=== PATIENT | female | born 1935 | race Hispanic/Latino ===

== ENCOUNTER 2022-07-25 19:38 | Inpatient (IN) | payer MEDICARE ==
[~2022-07-25] VITALS: Ht 162.6 cm; Wt 66.2 kg
[2022-07-25 20:48] LABS: BASOPHILS % (AUTO) 0.3 % (0.0-5.0); EOSINOPHILS % (AUTO) 0.1 % (0.0-8.0); HEMATOCRIT 23.9 % (36-48); LYMPHOCYTES % (AUTO) 1.9 % (21.0-51.0); MEAN CORPUSCULAR HEMOGLOBIN 30.3 pg (27.0-33.0); MEAN CORPUSCULAR HGB CONC 30.1 g/dL (32.0-36.0); MEAN CORPUSCULAR VOLUME 100.4 fL (79-99); MONOCYTES % (AUTO) 5.8 % (3.0-13.0); NEUTROPHILS % (AUTO) 90.5 % (40.0-77.0); PLATELET COUNT (AUTO) 114 K/uL (130-400); RED BLOOD CELL COUNT(AUTO) 2.38 MIL/uL (4.00-5.50); RED CELL DISTRIBUTION WIDTH 17.4 % (11.0-15.5); WHITE BLOOD COUNT (AUTO) 16.9 K/uL (4.8-10.8)
[2022-07-25 21:04] LABS: ALBUMIN 3.3 g/dL (3.5-5.0); CREATININE 2.1 mg/dL (0.5-1.5); POTASSIUM 4.9 mmol/L (3.5-5.1)
[2022-07-25 21:14] LABS: B-TYPE NATRIURETIC PEPTIDE 788 pg/mL (0-100)
[2022-07-25] MEDS ORDERED: INSULIN HUMULIN R 100 UNIT/ML 3ML IV ONE (22:00)
[2022-07-25 23:33] LABS: APPEARANCE,URINE CLOUDY (CLEAR); BILIRUBIN,URINE NEGATIVE (NEGATIVE); COLOR,URINE LIGHT-YELLOW (YELLOW); GLUCOSE, URINE (UA) 300 mg/dL (NEGATIVE); KETONES,URINE NEGATIVE (NEGATIVE); LEUKOCYTE ESTERASE ,URINE NEGATIVE Leu/uL (NEGATIVE); NITRATE,URINE NEGATIVE (NEGATIVE); PROTEIN,URINE 20 mg/dL (NEGATIVE); UROBILINOGEN,URINE 0.2 mg/dL (0.2-1.0)
[2022-07-25 23:39] LABS: MUCUS,URINE RARE LPF (None Seen); OTHER CASTS, URINE 4 /LPF (None Seen); RBC,URINE 0-1 /HPF (0-1); SQUAMOUS EPITHELIAL CELL,UR FEW /HPF (0-2)
[2022-07-26] MEDS: IPRATROPIUM/ALBUTEROL SULFATE 3 ML SOLUTION IH SCH ×5 (01:00→23:31)
[2022-07-26] MEDS ORDERED: ONDANSETRON 4MG INJ IVP PRN (01:00)
[2022-07-26] MEDS ORDERED: DEXTROSE 50%-WATER 50 ML DISP.SYRIN IV PRN (01:00)
[2022-07-26] MEDS ORDERED: CLONIDINE HCL 0.1 MG TABLET PO PRN (01:00)
[2022-07-26] MEDS ORDERED: GLUCAGON 1MG KIT 1 MG ML IM PRN (01:00)
[2022-07-26] MEDS ORDERED: HYDRALAZINE 20MG/ML VIAL IV PRN (01:00)
[2022-07-26] MEDS ORDERED: BENZONATATE 100 MG CAPSULE PO PRN (01:00)
[2022-07-26] MEDS ORDERED: GUAIFENESIN-DM 200/20 MG 10 ML PO PRN (01:00)
[2022-07-26] MEDS ORDERED: ACETAMINOPHEN 325 MG TAB PO PRN (01:00)
[2022-07-26] MEDS ORDERED: LACTULOSE 20 GM/30 ML UDCUP PO PRN (01:00)
[2022-07-26 01:13] LABS: ABG HCO3 22.1 mmol/L (21.0-28.0); ABG OXYGEN SATURATION 95.3 % (95.0-99.0); ABG PCO2 36 mmHg (32-45)
[2022-07-26] MEDS ORDERED: SODIUM CHLORIDE 3% FOR INHALATION 4 ML/AMP VIAL.NEB IH ONE ×2 (01:21→06:36)
[2022-07-26] MEDS: ALBUTEROL 0.083% 2.5 MG/3 ML INH IH PRN (01:23)
[2022-07-26] MEDS ORDERED: ZOSYN 3.375GM +NS 50ML IV SCH (02:30)
[2022-07-26] MEDS ORDERED: RENAL DOSE IV ONE (02:30)
[2022-07-26] MEDS ORDERED: AZITHROMYCIN 250 MG TABLET PO SCH (02:30)
[2022-07-26] MEDS ORDERED: FUROSEMIDE 20MG VIAL IV ONE (02:30)
[2022-07-26] MEDS ORDERED: AZITHROMYCIN 250 MG TABLET PO ONE (02:30)
[2022-07-26 03:09] VITALS: BP 121/45
[2022-07-26] MEDS ORDERED: BIMA12.5OS OD (04:08)
[2022-07-26] MEDS ORDERED: MIRT45TA83 PO (04:08)
[2022-07-26] MEDS ORDERED: GABA-529 PO (04:08)
[2022-07-26] MEDS ORDERED: MECO10005 PO (04:08)
[2022-07-26] MEDS ORDERED: POLY15DR38 OP (04:08)
[2022-07-26] MEDS ORDERED: ROSU5TAB PO (04:08)
[2022-07-26] MEDS ORDERED: TORS20TA4 PO (04:08)
[2022-07-26] MEDS ORDERED: [UNRECOGNIZED DRUG - CODE] PO (04:08)
[2022-07-26] MEDS ORDERED: FOLI0.4T6 PO (04:08)
[2022-07-26] MEDS ORDERED: TRAZ-185 PO (04:08)
[2022-07-26] MEDS ORDERED: FERR236T3 PO (04:08)
[2022-07-26] MEDS ORDERED: FOLI0.8T22 PO (04:08)
[2022-07-26] MEDS ORDERED: POTA10CA45 PO (04:08)
[2022-07-26] MEDS ORDERED: CHOL50002 PO (04:08)
[2022-07-26] MEDS ORDERED: ROSU5TAB12 PO (04:08)
[2022-07-26] MEDS ORDERED: NILO150C PO (04:08)
[2022-07-26] MEDS ORDERED: AMLO-258 PO (04:08)
[2022-07-26] MEDS ORDERED: METO25TA6 PO (04:08)
[2022-07-26] MEDS ORDERED: SITA25TA5 PO (04:08)
[2022-07-26 04:13] LABS: CREATININE 2.1 mg/dL (0.5-1.5); MAGNESIUM 2.3 mg/dL (1.80-2.40); PHOSPHORUS 3.3 mg/dL (2.5-4.9); POTASSIUM 4.3 mmol/L (3.5-5.1)
[2022-07-26 04:16] LABS: % IRON SATURATION 14.3 % (22-44)
[2022-07-26 06:14] LABS: BASOPHILS % (AUTO) 0.2 % (0.0-5.0); EOSINOPHILS % (AUTO) 0.2 % (0.0-8.0); LYMPHOCYTES % (AUTO) 4.6 % (21.0-51.0); MEAN CORPUSCULAR HEMOGLOBIN 29.4 pg (27.0-33.0); MEAN CORPUSCULAR VOLUME 98.1 fL (79-99); MONOCYTES % (AUTO) 7.1 % (3.0-13.0); NEUTROPHILS % (AUTO) 86.4 % (40.0-77.0); PLATELET COUNT (AUTO) 86 K/uL (130-400); RED BLOOD CELL COUNT(AUTO) 2.11 MIL/uL (4.00-5.50); RED CELL DISTRIBUTION WIDTH 17.5 % (11.0-15.5); WHITE BLOOD COUNT (AUTO) 8.8 K/uL (4.8-10.8)
[2022-07-26] MEDS: INSULIN HUMULIN R 100 UNIT/ML 3ML SQ SCH ×4 (06:23→21:31)
[2022-07-26 07:12] LABS: HEMATOCRIT 20.7 % (36-48)
[2022-07-26 08:00] VITALS: BP 123/37
[2022-07-26] MEDS ORDERED: PANTOPRAZOLE 40 MG TAB DR PO SCH (09:00)
[2022-07-26] MEDS: DOCUSATE SODIUM 100 MG CAP PO SCH ×2 (10:22→21:19)
[2022-07-26] MEDS ORDERED: BIMATOPROST OD SCH (11:30)
[2022-07-26] MEDS ORDERED: TRAZODONE HCL 50 MG TAB PO PRN (11:30)
[2022-07-26 11:42] VITALS: BP 122/42
[2022-07-26] MEDS ORDERED: FUROSEMIDE 40MG VIAL IV SCH (12:00)
[2022-07-26 12:16] LABS: RETICULOCYTE % (AUTO) 4.49 % (0.42-2.23)
[2022-07-26 12:50] LABS: THYROID STIMULATING HORMONE 0.79 uIU/mL (0.36-3.74)
[2022-07-26] MEDS: SUCRALFATE 1 GM TABLET PO SCH ×3 (12:56→21:21)
[2022-07-26] MEDS: TORSEMIDE 20 MG TAB PO SCH ×2 (12:56→21:28)
[2022-07-26] MEDS: AMINOCAPROIC ACID 500MG TAB PO SCH ×2 (13:06→21:21)
[2022-07-26 15:07] LABS: HEMATOCRIT 27.9 % (36-48)
[2022-07-26 16:00] VITALS: BP 127/58
[2022-07-26 20:23] VITALS: BP 133/82
[2022-07-26] MEDS: ZOSYN 3.375GM +NS 50ML IV SCH (21:19)
[2022-07-26] MEDS: METOPROLOL TARTRATE 25 MG TAB PO SCH (21:19)
[2022-07-26] MEDS: ATORVASTATIN 10 MG TABLET PO SCH (21:20)
[2022-07-26] MEDS: POTASSIUM CHLORIDE 10MEQ SR TAB PO SCH (21:29)
[2022-07-26] MEDS: MIRTAZAPINE 15 MG TABLET PO SCH (21:37)
[2022-07-26] MEDS: FUROSEMIDE 20MG VIAL IV SCH (23:53)
[2022-07-27 00:05] VITALS: BP 134/61
[2022-07-27 04:09] VITALS: BP 130/59
[2022-07-27 04:13] LABS: HEMATOCRIT 27.8 % (36-48); MEAN CORPUSCULAR HEMOGLOBIN 29.7 pg (27.0-33.0); MEAN CORPUSCULAR HGB CONC 31.3 g/dL (32.0-36.0); MEAN CORPUSCULAR VOLUME 94.9 fL (79-99); PLATELET COUNT (AUTO) 79 K/uL (130-400); RED BLOOD CELL COUNT(AUTO) 2.93 MIL/uL (4.00-5.50); RED CELL DISTRIBUTION WIDTH 17.3 % (11.0-15.5); WHITE BLOOD COUNT (AUTO) 10.2 K/uL (4.8-10.8)
[2022-07-27 04:28] LABS: CREATININE 2.2 mg/dL (0.5-1.5); MAGNESIUM 2.2 mg/dL (1.80-2.40); PHOSPHORUS 3.5 mg/dL (2.5-4.9); POTASSIUM 3.8 mmol/L (3.5-5.1); TOTAL PROTEIN, SERUM 5.7 g/dL (6.0-8.3); URIC ACID 7.7 mg/dL (2.6-7.2)
[2022-07-27 05:01] LABS: BAND NEUTROPHILS % (MANUAL) 5 % (0-2); LYMPHOCYTES % (MANUAL) 9 % (22-44); MAN.DIFF COMMENT-IMPRESSION MANUAL DIFFERENTIAL; MONOCYTES % (MANUAL) 2 % (2-9); PLATELET MORPHOLOGY COMMENT DECREASED; SEGMENTED NEUTROPHILS % 84 % (40-70)
[2022-07-27] MEDS: AZITHROMYCIN 250 MG TABLET PO SCH (05:04)
[2022-07-27] MEDS: IPRATROPIUM/ALBUTEROL SULFATE 3 ML SOLUTION IH SCH ×4 (06:32→23:49)
[2022-07-27] MEDS: INSULIN HUMULIN R 100 UNIT/ML 3ML SQ SCH ×4 (07:07→20:52)
[2022-07-27 07:44] VITALS: BP 128/57
[2022-07-27] MEDS: ZOSYN 3.375GM +NS 50ML IV SCH ×2 (08:52→21:15)
[2022-07-27] MEDS: Vitamin B Complex/Vit C/Folic Acid PO SCH (08:57)
[2022-07-27] MEDS: DOCUSATE SODIUM 100 MG CAP PO SCH ×2 (08:57→21:10)
[2022-07-27] MEDS: FOLIC ACID 1 MG TABLET PO SCH (08:57)
[2022-07-27] MEDS: POLYETHYLENE GLYCOL 3350 17 GM POWD.PACK PO SCH (08:57)
[2022-07-27] MEDS: POTASSIUM CHLORIDE 10MEQ SR TAB PO SCH ×2 (08:57→21:11)
[2022-07-27] MEDS: AMINOCAPROIC ACID 500MG TAB PO SCH ×3 (08:57→21:09)
[2022-07-27] MEDS: FERROUS GLUCONATE 324 TABLET PO SCH (08:57)
[2022-07-27] MEDS: SUCRALFATE 1 GM TABLET PO SCH ×4 (08:57→21:09)
[2022-07-27] MEDS: AMLODIPINE 5 MG TAB PO SCH (08:58)
[2022-07-27] MEDS: CYANOCOBALAMIN (VITAMIN B-12) 1,000 MCG TABLET PO SCH (08:58)
[2022-07-27] MEDS: METOPROLOL TARTRATE 25 MG TAB PO SCH ×2 (08:58→21:11)
[2022-07-27] MEDS ORDERED: ERGOCALCIFEROL (VITAMIN D2) 50,000 UNIT CAPSULE PO SCH (09:00)
[2022-07-27 12:00] VITALS: BP 122/62
[2022-07-27] MEDS: FUROSEMIDE 20MG VIAL IV SCH (12:05)
[2022-07-27 16:00] VITALS: BP 120/47
[2022-07-27 20:48] VITALS: BP 113/53
[2022-07-27] MEDS: MIRTAZAPINE 15 MG TABLET PO SCH (21:10)
[2022-07-27] MEDS: ATORVASTATIN 10 MG TABLET PO SCH (21:11)
[2022-07-27] MEDS: ALBUTEROL 0.083% 2.5 MG/3 ML INH IH PRN (23:48)
[2022-07-28] VITALS (7 sets, daily range): BP systolic 114–150; BP diastolic 47–60
[2022-07-28] MEDS: FUROSEMIDE 20MG VIAL IV SCH ×2 (01:05→11:43)
[2022-07-28 03:35] LABS: MEAN CORPUSCULAR HEMOGLOBIN 29.8 pg (27.0-33.0); MEAN CORPUSCULAR HGB CONC 31.9 g/dL (32.0-36.0); MEAN CORPUSCULAR VOLUME 93.4 fL (79-99); RED BLOOD CELL COUNT(AUTO) 2.89 MIL/uL (4.00-5.50); RED CELL DISTRIBUTION WIDTH 16.9 % (11.0-15.5); WHITE BLOOD COUNT (AUTO) 10.3 K/uL (4.8-10.8)
[2022-07-28 03:46] LABS: CREATININE 2.4 mg/dL (0.5-1.5); POTASSIUM 3.2 mmol/L (3.5-5.1)
[2022-07-28] MEDS: INSULIN HUMULIN R 100 UNIT/ML 3ML SQ SCH ×4 (06:02→20:13)
[2022-07-28] MEDS: SUCRALFATE 1 GM TABLET PO SCH ×4 (06:18→22:04)
[2022-07-28] MEDS: AZITHROMYCIN 250 MG TABLET PO SCH (06:18)
[2022-07-28] MEDS: ALBUTEROL 0.083% 2.5 MG/3 ML INH IH PRN (07:07)
[2022-07-28] MEDS: POTASSIUM CHLORIDE 10MEQ SR TAB PO SCH ×2 (07:32→22:05)
[2022-07-28] MEDS: ZOSYN 3.375GM +NS 50ML IV SCH ×2 (07:32→22:06)
[2022-07-28] MEDS: METOPROLOL TARTRATE 25 MG TAB PO SCH ×2 (07:33→22:05)
[2022-07-28] MEDS: AMLODIPINE 5 MG TAB PO SCH (07:33)
[2022-07-28] MEDS: FERROUS GLUCONATE 324 TABLET PO SCH (07:33)
[2022-07-28] MEDS: CYANOCOBALAMIN (VITAMIN B-12) 1,000 MCG TABLET PO SCH (07:34)
[2022-07-28] MEDS: FOLIC ACID 1 MG TABLET PO SCH (07:34)
[2022-07-28] MEDS: Vitamin B Complex/Vit C/Folic Acid PO SCH (07:34)
[2022-07-28] MEDS: DOCUSATE SODIUM 100 MG CAP PO SCH ×2 (07:34→22:05)
[2022-07-28] MEDS: POLYETHYLENE GLYCOL 3350 17 GM POWD.PACK PO SCH (07:34)
[2022-07-28] MEDS: AMINOCAPROIC ACID 500MG TAB PO SCH ×3 (09:12→22:05)
[2022-07-28] MEDS: ALBUTEROL 0.083% 2.5 MG/3 ML INH IH SCH ×3 (11:24→23:11)
[2022-07-28] MEDS: IPRATROPIUM 0.5 MG/2.5 ML INH IH SCH ×3 (11:24→23:11)
[2022-07-28] MEDS ORDERED: FUROSEMIDE 40MG VIAL IV ONE (20:30)
[2022-07-28] MEDS ORDERED: 0.9%NACL 50ML 50 ML IV ONE (21:35)
[2022-07-28] MEDS: ATORVASTATIN 10 MG TABLET PO SCH (22:05)
[2022-07-28] MEDS: MIRTAZAPINE 15 MG TABLET PO SCH (22:06)
[2022-07-29 03:25] LABS: HEMATOCRIT 25.3 % (36-48); MEAN CORPUSCULAR HGB CONC 31.6 g/dL (32.0-36.0); MEAN CORPUSCULAR VOLUME 94.8 fL (79-99); RED BLOOD CELL COUNT(AUTO) 2.67 MIL/uL (4.00-5.50); RED CELL DISTRIBUTION WIDTH 16.7 % (11.0-15.5); WHITE BLOOD COUNT (AUTO) 9.6 K/uL (4.8-10.8)
[2022-07-29 03:36] LABS: CREATININE 2.3 mg/dL (0.5-1.5); POTASSIUM 3.2 mmol/L (3.5-5.1)
[2022-07-29 04:25] VITALS: BP 131/62
[2022-07-29] MEDS: IPRATROPIUM 0.5 MG/2.5 ML INH IH SCH ×2 (06:21→11:13)
[2022-07-29] MEDS: ALBUTEROL 0.083% 2.5 MG/3 ML INH IH SCH ×2 (06:22→11:13)
[2022-07-29] MEDS: INSULIN HUMULIN R 100 UNIT/ML 3ML SQ SCH ×2 (06:36→11:55)
[2022-07-29] MEDS: AZITHROMYCIN 250 MG TABLET PO SCH (06:46)
[2022-07-29] MEDS: SUCRALFATE 1 GM TABLET PO SCH ×2 (06:46→11:50)
[2022-07-29 07:02] VITALS: BP 129/60
[2022-07-29] MEDS ORDERED: 0.9%NACL 50ML 50 ML IV ONE (08:35)
[2022-07-29] MEDS: POLYETHYLENE GLYCOL 3350 17 GM POWD.PACK PO SCH ×2 (09:00→09:22)
[2022-07-29] MEDS ORDERED: FUROSEMIDE 40 MG TABLET PO SCH (09:00)
[2022-07-29] MEDS: ZOSYN 3.375GM +NS 50ML IV SCH (09:20)
[2022-07-29] MEDS: FERROUS GLUCONATE 324 TABLET PO SCH (09:21)
[2022-07-29] MEDS: POTASSIUM CHLORIDE 10MEQ SR TAB PO SCH (09:21)
[2022-07-29] MEDS: CYANOCOBALAMIN (VITAMIN B-12) 1,000 MCG TABLET PO SCH (09:21)
[2022-07-29] MEDS: AMLODIPINE 5 MG TAB PO SCH (09:22)
[2022-07-29] MEDS: FOLIC ACID 1 MG TABLET PO SCH (09:22)
[2022-07-29] MEDS: Vitamin B Complex/Vit C/Folic Acid PO SCH (09:22)
[2022-07-29] MEDS: DOCUSATE SODIUM 100 MG CAP PO SCH (09:22)
[2022-07-29] MEDS: METOPROLOL TARTRATE 25 MG TAB PO SCH (09:22)
[2022-07-29] MEDS: AMINOCAPROIC ACID 500MG TAB PO SCH ×2 (09:31→13:39)
[2022-07-29 12:12] VITALS: BP 123/54
== END 2022-07-29 15:43 | DRG 871 ==
LOC: EDH 19:38 → OBSVTOIN 07-26 00:34 → EDHIP 07-26 00:34 → 2DH 07-26 02:45
PROVIDERS: ADMIT Internal Medicine Critical Care Medicine; ATTEND Internal Medicine Critical Care Medicine
PROC: 30233N1 Transfusion of Nonautologous Red Blood Cells into Peripheral Vein, Percutaneous Approach (ICD-10-PCS; principal; 2022-07-26)
DX: A41.9 Sepsis, unspecified organism (principal); J18.9 Pneumonia, unspecified organism; J96.01 Acute respiratory failure with hypoxia; J44.0 Chronic obstructive pulmonary disease with (acute) lower respiratory infection; I13.0 Hypertensive heart and chronic kidney disease with heart failure and stage 1 through stage 4 chronic kidney disease, or unspecified chronic kidney disease; N17.9 Acute kidney failure, unspecified; N18.4 Chronic kidney disease, stage 4 (severe); E87.1 Hypo-osmolality and hyponatremia; C92.10 Chronic myeloid leukemia, BCR/ABL-positive, not having achieved remission; Z20.822 Contact with and (suspected) exposure to COVID-19; I50.9 Heart failure, unspecified; D53.9 Nutritional anemia, unspecified; D69.6 Thrombocytopenia, unspecified; E11.22 Type 2 diabetes mellitus with diabetic chronic kidney disease; E11.65 Type 2 diabetes mellitus with hyperglycemia; Z79.4 Long term (current) use of insulin; Z87.440 Personal history of urinary (tract) infections; Z90.49 Acquired absence of other specified parts of digestive tract; Z90.710 Acquired absence of both cervix and uterus; Z95.0 Presence of cardiac pacemaker; Z95.1 Presence of aortocoronary bypass graft; Z95.3 Presence of xenogenic heart valve
CPT/HCPCS: 36415; 36600; 71045; 80048; 80053; 81001; 82270; 82330; 82550; 82607; 82728; 82746; 82803; 82948; 83540; 83550; 83605; 83615; 83735; 83874; 83880; 84100; 84145; 84443; 84484; 84550; 85014; 85018; 85025; 85027; 85045; 85378; 86738; 86850; 86900; 86901; 86923; 87040; 87071; 87205; 87449; 87635; 87804; 93005; 93970; 94640; 94660; 94664; 94667; 94668; 97039; C9803; G0378; J1815; J1940; J2543; P9016

== ENCOUNTER 2022-08-17 19:07 | Emergency (ER) | payer MEDICARE ==
[~2022-08-17] VITALS: Ht 160 cm; Wt 74.8 kg
[~2022-08-17 19:07] MED LIST: AMLO-258 PO; BIMA12.5OS OD; CHOL50002 PO; FERR236T3 PO; FOLI0.4T6 PO; FOLI0.8T22 PO; GABA-529 PO; MECO10005 PO; METO25TA6 PO; MIRT45TA83 PO; NILO150C PO; POLY15DR38 OP; POTA10CA45 PO; ROSU5TAB12 PO; SITA25TA5 PO; TORS20TA4 PO; TRAZ-185 PO; [UNRECOGNIZED DRUG - CODE] PO
[2022-08-17 20:05] LABS: BASOPHILS % (AUTO) 0.1 % (0.0-5.0); HEMATOCRIT 23.7 % (36-48); LYMPHOCYTES % (AUTO) 2.2 % (21.0-51.0); MEAN CORPUSCULAR HEMOGLOBIN 29.1 pg (27.0-33.0); MEAN CORPUSCULAR VOLUME 97.1 fL (79-99); MONOCYTES % (AUTO) 5.6 % (3.0-13.0); NEUTROPHILS % (AUTO) 91.1 % (40.0-77.0); PLATELET COUNT (AUTO) 86 K/uL (130-400); RED BLOOD CELL COUNT(AUTO) 2.44 MIL/uL (4.00-5.50); RED CELL DISTRIBUTION WIDTH 17.5 % (11.0-15.5)
[2022-08-17 20:16] LABS: CREATININE 1.9 mg/dL (0.5-1.5); POTASSIUM 3.7 mmol/L (3.5-5.1)
[2022-08-17 20:25] LABS: TOTAL PROTEIN, SERUM 5.8 g/dL (6.0-8.3)
[2022-08-17 22:36] VITALS: BP 116/41
== END 2022-08-18 00:32 | disposition home or self-care (01) ==
LOC: EDH 19:07
DX: D64.9 Anemia, unspecified (principal); I11.0 Hypertensive heart disease with heart failure; I50.9 Heart failure, unspecified; F41.9 Anxiety disorder, unspecified
CPT/HCPCS: 36415; 71045; 80053; 84484; 85025; 93005

== ENCOUNTER 2022-08-19 12:00 | Inpatient (IN) | payer MEDICARE ==
[~2022-08-19] VITALS: Ht 160 cm; Wt 68.9 kg
[2022-08-19 13:17] LABS: BASOPHILS % (AUTO) 0.1 % (0.0-5.0); EOSINOPHILS % (AUTO) 0.5 % (0.0-8.0); LYMPHOCYTES % (AUTO) 2.3 % (21.0-51.0); MEAN CORPUSCULAR HEMOGLOBIN 29.4 pg (27.0-33.0); MEAN CORPUSCULAR HGB CONC 30.2 g/dL (32.0-36.0); MEAN CORPUSCULAR VOLUME 97.5 fL (79-99); MONOCYTES % (AUTO) 3.7 % (3.0-13.0); NEUTROPHILS % (AUTO) 92.2 % (40.0-77.0); PLATELET COUNT (AUTO) 93 K/uL (130-400); RED BLOOD CELL COUNT(AUTO) 1.97 MIL/uL (4.00-5.50); RED CELL DISTRIBUTION WIDTH 17.8 % (11.0-15.5); WHITE BLOOD COUNT (AUTO) 10.6 K/uL (4.8-10.8)
[2022-08-19 13:26] LABS: CREATININE 1.9 mg/dL (0.5-1.5); POTASSIUM 3.9 mmol/L (3.5-5.1)
[2022-08-19 13:27] LABS: HEMATOCRIT 19.2 % (36-48)
[2022-08-19 13:31] LABS: ALBUMIN 2.9 g/dL (3.5-5.0); TOTAL PROTEIN, SERUM 5.6 g/dL (6.0-8.3)
[2022-08-19 13:36] LABS: B-TYPE NATRIURETIC PEPTIDE 446 pg/mL (0-100)
[2022-08-19] MEDS ORDERED: ACETAMINOPHEN 650 MG SUPPOSITORY RC PRN (16:00)
[2022-08-19] MEDS ORDERED: HYDRALAZINE 20MG/ML VIAL IV PRN (16:00)
[2022-08-19] MEDS ORDERED: ONDANSETRON 4MG INJ IVP PRN (16:00)
[2022-08-19] MEDS: ARTIFICAL TEARS SOL 15 ML OU SCH ×2 (16:00→22:00)
[2022-08-19] MEDS ORDERED: FUROSEMIDE 20MG VIAL IV ONE (16:00)
[2022-08-19] MEDS ORDERED: ACETAMINOPHEN 325 MG TAB PO PRN (16:00)
[2022-08-19] MEDS ORDERED: DOCUSATE SODIUM 100 MG CAP PO PRN (16:00)
[2022-08-19] MEDS: INSULIN HUMULIN R 100 UNIT/ML 3ML SQ SCH ×2 (16:30→21:00)
[2022-08-19] MEDS: ALBUTEROL 0.083% 2.5 MG/3 ML INH IH PRN ×2 (18:28→23:33)
[2022-08-19] MEDS: ALPRAZOLAM 0.25 MG TABLET PO PRN (22:30)
[2022-08-19] MEDS: PANTOPRAZOLE 40 MG TAB DR PO SCH (22:30)
[2022-08-19 23:06] VITALS: BP 113/66
[2022-08-19 23:33] LABS: HEMATOCRIT 20.2 % (36-48)
[2022-08-20] MEDS: ARTIFICAL TEARS SOL 15 ML OU SCH ×5 (03:57→22:00)
[2022-08-20 04:38] VITALS: BP 147/79
[2022-08-20 05:36] LABS: HEMATOCRIT 26.2 % (36-48); MEAN CORPUSCULAR HEMOGLOBIN 30.3 pg (27.0-33.0); MEAN CORPUSCULAR HGB CONC 31.7 g/dL (32.0-36.0); MEAN CORPUSCULAR VOLUME 95.6 fL (79-99); RED BLOOD CELL COUNT(AUTO) 2.74 MIL/uL (4.00-5.50); RED CELL DISTRIBUTION WIDTH 16.4 % (11.0-15.5); WHITE BLOOD COUNT (AUTO) 7.4 K/uL (4.8-10.8)
[2022-08-20] MEDS: INSULIN HUMULIN R 100 UNIT/ML 3ML SQ SCH ×4 (05:42→21:00)
[2022-08-20 06:23] LABS: CREATININE 1.7 mg/dL (0.5-1.5); MAGNESIUM 2.5 mg/dL (1.80-2.40); PHOSPHORUS 4.3 mg/dL (2.5-4.9); POTASSIUM 3.4 mmol/L (3.5-5.1)
[2022-08-20 06:32] LABS: % IRON SATURATION 61.9 % (22-44)
[2022-08-20] MEDS: ALBUTEROL 0.083% 2.5 MG/3 ML INH IH PRN ×4 (06:34→23:16)
[2022-08-20] MEDS: PANTOPRAZOLE 40 MG TAB DR PO SCH (07:44)
[2022-08-20] MEDS: THIAMINE HCL 100 MG TABLET PO SCH (07:44)
[2022-08-20 08:23] VITALS: BP 118/46
[2022-08-20] MEDS ORDERED: FOLIC ACID 1 MG TABLET PO SCH (09:00)
[2022-08-20] MEDS ORDERED: TRAZODONE HCL 50 MG TAB PO PRN (11:00)
[2022-08-20] MEDS ORDERED: LATANOPROST 2.5 ML DROPS OD SCH (11:00)
[2022-08-20] MEDS ORDERED: FUROSEMIDE 40MG VIAL IV ONE ×2 (11:30→21:30)
[2022-08-20] MEDS: ACETAMINOPHEN WITH CODEINE 1 TAB TAB PO PRN (11:54)
[2022-08-20] MEDS: GABAPENTIN 100 MG CAPSULE PO SCH ×3 (11:54→22:02)
[2022-08-20 12:13] VITALS: BP 112/45
[2022-08-20] MEDS: AMINOCAPROIC ACID 500MG TAB PO SCH ×2 (14:16→22:00)
[2022-08-20] MEDS: ARTIFICAL TEARS SOL 15 ML OP PRN (16:06)
[2022-08-20 16:19] VITALS: BP 116/44
[2022-08-20] MEDS: SUCRALFATE 1 GM TABLET PO SCH ×2 (19:01→23:15)
[2022-08-20 20:18] VITALS: BP 115/45
[2022-08-20] MEDS: METOPROLOL TARTRATE 25 MG TAB PO SCH (22:01)
[2022-08-20] MEDS: TORSEMIDE 20 MG TAB PO SCH (22:01)
[2022-08-20] MEDS: MIRTAZAPINE 15 MG TABLET PO SCH (22:01)
[2022-08-20] MEDS: POTASSIUM CHLORIDE 10MEQ SR TAB PO SCH (22:02)
[2022-08-20] MEDS: PANTOPRAZOLE 40 MG/VIAL IVP SCH (22:03)
[2022-08-20 22:51] VITALS: BP 122/55
[2022-08-21] VITALS (17 sets, daily range): BP systolic 89–124; BP diastolic 43–64
[2022-08-21] MEDS: ARTIFICAL TEARS SOL 15 ML OU SCH ×4 (03:18→22:09)
[2022-08-21] MEDS: ACETAMINOPHEN WITH CODEINE 1 TAB TAB PO PRN (03:18)
[2022-08-21 04:00] LABS: HEMATOCRIT 25.6 % (36-48); MEAN CORPUSCULAR HGB CONC 30.5 g/dL (32.0-36.0); MEAN CORPUSCULAR VOLUME 98.5 fL (79-99); RED BLOOD CELL COUNT(AUTO) 2.6 MIL/uL (4.00-5.50); RED CELL DISTRIBUTION WIDTH 16.3 % (11.0-15.5); WHITE BLOOD COUNT (AUTO) 5.3 K/uL (4.8-10.8)
[2022-08-21 04:16] LABS: CREATININE 1.7 mg/dL (0.5-1.5); POTASSIUM 3.4 mmol/L (3.5-5.1)
[2022-08-21] MEDS: SUCRALFATE 1 GM TABLET PO SCH ×4 (06:00→23:38)
[2022-08-21] MEDS: INSULIN HUMULIN R 100 UNIT/ML 3ML SQ SCH ×4 (06:00→20:16)
[2022-08-21] MEDS: ALBUTEROL 0.083% 2.5 MG/3 ML INH IH PRN ×4 (07:13→23:28)
[2022-08-21 08:28] LABS: PROTHROMBIN TIME 10.9 SEC (9.6-11.6)
[2022-08-21 08:30] LABS: PARTIAL THROMBOPLASTIN TIME 26.7 SEC (26.3-35.5)
[2022-08-21] MEDS: FERROUS GLUCONATE 324 TABLET PO SCH (09:00)
[2022-08-21] MEDS: Vitamin B Complex/Vit C/Folic Acid PO SCH (09:00)
[2022-08-21] MEDS: METOPROLOL TARTRATE 25 MG TAB PO SCH ×2 (09:00→20:14)
[2022-08-21] MEDS: POTASSIUM CHLORIDE 10MEQ SR TAB PO SCH ×2 (09:00→20:13)
[2022-08-21] MEDS: MECOBALAMIN PO SCH (09:00)
[2022-08-21] MEDS ORDERED: TASIGNA 150 MG PO SCH (09:00)
[2022-08-21] MEDS: FOLIC ACID 1 MG TABLET PO SCH (09:00)
[2022-08-21] MEDS: TORSEMIDE 20 MG TAB PO SCH ×2 (09:00→20:14)
[2022-08-21] MEDS: AMINOCAPROIC ACID 500MG TAB PO SCH ×3 (09:00→20:13)
[2022-08-21] MEDS: GABAPENTIN 100 MG CAPSULE PO SCH ×4 (09:00→20:14)
[2022-08-21] MEDS: THIAMINE HCL 100 MG TABLET PO SCH (09:00)
[2022-08-21] MEDS ORDERED: 0.9%NACL 1000ML 1,000 ML IV ONE (10:52)
[2022-08-21] MEDS ORDERED: PROPOFOL 10 MG/ML 20ML VIAL IV ONE (11:10)
[2022-08-21] MEDS ORDERED: LIDOCAINE PF 100MG/5ML (2%) SYRINGE 5ML ONE (11:10)
[2022-08-21] MEDS: ERGOCALCIFEROL (VITAMIN D2) 50,000 UNIT CAPSULE PO SCH (14:20)
[2022-08-21] MEDS: PANTOPRAZOLE 40 MG/VIAL IVP SCH ×2 (14:20→20:13)
[2022-08-21] MEDS: ATORVASTATIN 10 MG TABLET PO SCH (14:25)
[2022-08-21] MEDS: AMLODIPINE 5 MG TAB PO SCH (14:25)
[2022-08-21] MEDS ORDERED: FUROSEMIDE 40MG VIAL IV ONE (20:00)
[2022-08-21] MEDS: MIRTAZAPINE 15 MG TABLET PO SCH (20:14)
[2022-08-21 22:47] LABS: HEMATOCRIT 27.1 % (36-48)
[2022-08-22] VITALS (7 sets, daily range): BP systolic 105–143; BP diastolic 48–65
[2022-08-22 03:56] LABS: HEMATOCRIT 27.1 % (36-48); MEAN CORPUSCULAR HEMOGLOBIN 30.4 pg (27.0-33.0); MEAN CORPUSCULAR HGB CONC 30.6 g/dL (32.0-36.0); MEAN CORPUSCULAR VOLUME 99.3 fL (79-99); RED BLOOD CELL COUNT(AUTO) 2.73 MIL/uL (4.00-5.50); RED CELL DISTRIBUTION WIDTH 15.8 % (11.0-15.5); WHITE BLOOD COUNT (AUTO) 5.7 K/uL (4.8-10.8)
[2022-08-22 04:02] LABS: CREATININE 1.7 mg/dL (0.5-1.5); POTASSIUM 3.4 mmol/L (3.5-5.1)
[2022-08-22] MEDS: ARTIFICAL TEARS SOL 15 ML OU SCH ×4 (04:15→21:01)
[2022-08-22] MEDS: SUCRALFATE 1 GM TABLET PO SCH ×3 (05:00→20:33)
[2022-08-22] MEDS: INSULIN HUMULIN R 100 UNIT/ML 3ML SQ SCH ×4 (06:35→20:39)
[2022-08-22] MEDS: ALBUTEROL 0.083% 2.5 MG/3 ML INH IH PRN ×4 (06:39→23:10)
[2022-08-22] MEDS: AMINOCAPROIC ACID 500MG TAB PO SCH ×3 (08:45→20:33)
[2022-08-22] MEDS: FERROUS GLUCONATE 324 TABLET PO SCH (08:45)
[2022-08-22] MEDS: PANTOPRAZOLE 40 MG/VIAL IVP SCH ×2 (08:46→20:32)
[2022-08-22] MEDS: METOPROLOL TARTRATE 25 MG TAB PO SCH ×2 (08:46→20:32)
[2022-08-22] MEDS: Vitamin B Complex/Vit C/Folic Acid PO SCH (08:46)
[2022-08-22] MEDS: ERGOCALCIFEROL (VITAMIN D2) 50,000 UNIT CAPSULE PO SCH (08:46)
[2022-08-22] MEDS: TORSEMIDE 20 MG TAB PO SCH (08:46)
[2022-08-22] MEDS: THIAMINE HCL 100 MG TABLET PO SCH (08:46)
[2022-08-22] MEDS: GABAPENTIN 100 MG CAPSULE PO SCH ×4 (08:47→20:33)
[2022-08-22] MEDS: POTASSIUM CHLORIDE 10MEQ SR TAB PO SCH ×2 (08:47→20:32)
[2022-08-22] MEDS: ATORVASTATIN 10 MG TABLET PO SCH (08:47)
[2022-08-22] MEDS: MECOBALAMIN PO SCH (08:47)
[2022-08-22] MEDS: FOLIC ACID 1 MG TABLET PO SCH (08:47)
[2022-08-22] MEDS: AMLODIPINE 5 MG TAB PO SCH (08:47)
[2022-08-22] MEDS: FUROSEMIDE 40MG VIAL IV SCH (13:00)
[2022-08-22] MEDS ORDERED: SPIRONOLACTONE 25 MG TAB PO SCH (13:00)
[2022-08-22] MEDS: LACTULOSE 20 GM/30 ML UDCUP PO PRN (13:20)
[2022-08-22] MEDS: ARTIFICAL TEARS SOL 15 ML OP PRN (16:11)
[2022-08-22] MEDS: SPIRONOLACTONE 25 MG TAB PO SCH (20:33)
[2022-08-22] MEDS: MIRTAZAPINE 15 MG TABLET PO SCH (20:37)
[2022-08-23] MEDS: FUROSEMIDE 40MG VIAL IV SCH ×2 (00:19→12:16)
[2022-08-23] MEDS: ARTIFICAL TEARS SOL 15 ML OU SCH ×4 (03:20→22:45)
[2022-08-23 04:00] VITALS: BP 128/43
[2022-08-23 04:13] LABS: HEMATOCRIT 26.8 % (36-48); MEAN CORPUSCULAR HEMOGLOBIN 30.3 pg (27.0-33.0); MEAN CORPUSCULAR HGB CONC 30.6 g/dL (32.0-36.0); MEAN CORPUSCULAR VOLUME 98.9 fL (79-99); RED BLOOD CELL COUNT(AUTO) 2.71 MIL/uL (4.00-5.50); RED CELL DISTRIBUTION WIDTH 15.9 % (11.0-15.5); WHITE BLOOD COUNT (AUTO) 5.4 K/uL (4.8-10.8)
[2022-08-23 04:24] LABS: CREATININE 1.6 mg/dL (0.5-1.5); POTASSIUM 3.3 mmol/L (3.5-5.1)
[2022-08-23] MEDS: INSULIN HUMULIN R 100 UNIT/ML 3ML SQ SCH ×4 (05:59→21:00)
[2022-08-23] MEDS: SUCRALFATE 1 GM TABLET PO SCH ×4 (05:59→20:31)
[2022-08-23] MEDS: ALBUTEROL 0.083% 2.5 MG/3 ML INH IH PRN ×3 (06:59→18:51)
[2022-08-23 07:12] VITALS: BP_SYST 113; BP_SYST 157; BP_DIAS 50; BP_DIAS 70
[2022-08-23] MEDS: GABAPENTIN 100 MG CAPSULE PO SCH ×4 (08:29→20:30)
[2022-08-23] MEDS: PANTOPRAZOLE 40 MG/VIAL IVP SCH ×2 (08:29→20:31)
[2022-08-23] MEDS: METOPROLOL TARTRATE 25 MG TAB PO SCH ×2 (08:30→20:30)
[2022-08-23] MEDS: THIAMINE HCL 100 MG TABLET PO SCH (08:30)
[2022-08-23] MEDS: FOLIC ACID 1 MG TABLET PO SCH (08:30)
[2022-08-23] MEDS: SPIRONOLACTONE 25 MG TAB PO SCH ×2 (08:30→20:31)
[2022-08-23] MEDS: AMLODIPINE 5 MG TAB PO SCH (08:30)
[2022-08-23] MEDS: Vitamin B Complex/Vit C/Folic Acid PO SCH (08:30)
[2022-08-23] MEDS: ATORVASTATIN 10 MG TABLET PO SCH (08:30)
[2022-08-23] MEDS: POTASSIUM CHLORIDE 10MEQ SR TAB PO SCH ×2 (08:30→20:31)
[2022-08-23] MEDS: AMINOCAPROIC ACID 500MG TAB PO SCH ×3 (08:30→20:31)
[2022-08-23] MEDS: FERROUS GLUCONATE 324 TABLET PO SCH (08:30)
[2022-08-23] MEDS: ERGOCALCIFEROL (VITAMIN D2) 50,000 UNIT CAPSULE PO SCH (08:30)
[2022-08-23] MEDS: MECOBALAMIN PO SCH (08:31)
[2022-08-23 11:39] VITALS: BP 121/68
[2022-08-23] MEDS: ARTIFICAL TEARS SOL 15 ML OP PRN (11:50)
[2022-08-23] MEDS ORDERED: POTASSIUM CHLORIDE 10MEQ/100ML 100 ML IV PRN (12:30)
[2022-08-23] MEDS ORDERED: LIDOCAINE HCL-MPF 1% 2ML VIAL IV PRN (12:30)
[2022-08-23] MEDS ORDERED: POTASSIUM CHLORIDE 10% ELIXIR 20 MEQ/15 ML UDCUP PO PRN (12:30)
[2022-08-23] MEDS: KCL 20 MEQ ERTAB PO PRN ×2 (13:43→17:04)
[2022-08-23 16:00] VITALS: BP 117/51
[2022-08-23 19:31] VITALS: BP 124/51
[2022-08-23] MEDS: MIRTAZAPINE 15 MG TABLET PO SCH (20:31)
[2022-08-23 23:28] VITALS: BP 122/49
[2022-08-24 03:23] VITALS: BP 117/53
[2022-08-24] MEDS: ARTIFICAL TEARS SOL 15 ML OU SCH ×4 (04:07→21:53)
[2022-08-24] MEDS: ALBUTEROL 0.083% 2.5 MG/3 ML INH IH PRN ×2 (07:00→18:35)
[2022-08-24] MEDS: INSULIN HUMULIN R 100 UNIT/ML 3ML SQ SCH ×4 (07:11→21:00)
[2022-08-24] MEDS: SUCRALFATE 1 GM TABLET PO SCH ×4 (07:50→21:47)
[2022-08-24 07:55] VITALS: BP 144/73
[2022-08-24] MEDS: MECOBALAMIN PO SCH (09:00)
[2022-08-24] MEDS: TORSEMIDE 20 MG TAB PO SCH ×2 (09:39→21:46)
[2022-08-24] MEDS: AMLODIPINE 5 MG TAB PO SCH (09:39)
[2022-08-24] MEDS: AMINOCAPROIC ACID 500MG TAB PO SCH ×3 (09:39→21:45)
[2022-08-24] MEDS: ERGOCALCIFEROL (VITAMIN D2) 50,000 UNIT CAPSULE PO SCH (09:39)
[2022-08-24] MEDS: Vitamin B Complex/Vit C/Folic Acid PO SCH (09:39)
[2022-08-24] MEDS: PANTOPRAZOLE 40 MG/VIAL IVP SCH ×2 (09:39→21:42)
[2022-08-24] MEDS: SPIRONOLACTONE 25 MG TAB PO SCH ×2 (09:39→21:47)
[2022-08-24] MEDS: POTASSIUM CHLORIDE 10MEQ SR TAB PO SCH ×2 (09:40→21:46)
[2022-08-24] MEDS: GABAPENTIN 100 MG CAPSULE PO SCH ×4 (09:41→21:50)
[2022-08-24] MEDS: METOPROLOL TARTRATE 25 MG TAB PO SCH ×2 (09:41→21:47)
[2022-08-24] MEDS: THIAMINE HCL 100 MG TABLET PO SCH (09:41)
[2022-08-24] MEDS: FOLIC ACID 1 MG TABLET PO SCH (09:42)
[2022-08-24] MEDS: ATORVASTATIN 10 MG TABLET PO SCH (09:42)
[2022-08-24] MEDS: FERROUS GLUCONATE 324 TABLET PO SCH (09:42)
[2022-08-24 12:10] VITALS: BP 138/63
[2022-08-24] MEDS: LACTULOSE 20 GM/30 ML UDCUP PO PRN (14:41)
[2022-08-24 15:17] VITALS: BP 129/62
[2022-08-24 18:54] VITALS: BP 112/80
[2022-08-24] MEDS: MIRTAZAPINE 15 MG TABLET PO SCH (21:48)
[2022-08-24 23:09] VITALS: BP 121/48
[2022-08-25 03:08] VITALS: BP 108/43
[2022-08-25] MEDS: ARTIFICAL TEARS SOL 15 ML OU SCH ×3 (03:38→15:37)
[2022-08-25 04:19] LABS: CREATININE 1.6 mg/dL (0.5-1.5); MAGNESIUM 2.3 mg/dL (1.80-2.40); POTASSIUM 3.9 mmol/L (3.5-5.1)
[2022-08-25] MEDS: INSULIN HUMULIN R 100 UNIT/ML 3ML SQ SCH ×3 (05:51→16:30)
[2022-08-25] MEDS: SUCRALFATE 1 GM TABLET PO SCH ×3 (06:30→16:47)
[2022-08-25 06:36] VITALS: BP 120/52
[2022-08-25] MEDS: PANTOPRAZOLE 40 MG/VIAL IVP SCH (08:52)
[2022-08-25] MEDS: AMINOCAPROIC ACID 500MG TAB PO SCH ×2 (08:52→14:45)
[2022-08-25] MEDS: ERGOCALCIFEROL (VITAMIN D2) 50,000 UNIT CAPSULE PO SCH (08:53)
[2022-08-25] MEDS: ATORVASTATIN 10 MG TABLET PO SCH (08:53)
[2022-08-25] MEDS: POTASSIUM CHLORIDE 10MEQ SR TAB PO SCH (08:53)
[2022-08-25] MEDS: FERROUS GLUCONATE 324 TABLET PO SCH (08:53)
[2022-08-25] MEDS: Vitamin B Complex/Vit C/Folic Acid PO SCH (08:53)
[2022-08-25] MEDS: MECOBALAMIN PO SCH (08:54)
[2022-08-25] MEDS: FOLIC ACID 1 MG TABLET PO SCH (08:54)
[2022-08-25] MEDS: GABAPENTIN 100 MG CAPSULE PO SCH ×3 (08:55→14:45)
[2022-08-25 08:56] VITALS: BP 112/47
[2022-08-25] MEDS: AMLODIPINE 5 MG TAB PO SCH (08:57)
[2022-08-25] MEDS: METOPROLOL TARTRATE 25 MG TAB PO SCH (08:58)
[2022-08-25] MEDS: SPIRONOLACTONE 25 MG TAB PO SCH (08:58)
[2022-08-25] MEDS: TORSEMIDE 20 MG TAB PO SCH (08:58)
[2022-08-25] MEDS: THIAMINE HCL 100 MG TABLET PO SCH (09:54)
[2022-08-25] MEDS ORDERED: HEPARIN PF LOCK 500 UNIT/5ML IV SCH (10:00)
[2022-08-25] MEDS: ALBUTEROL 0.083% 2.5 MG/3 ML INH IH PRN (11:19)
[2022-08-25 11:33] VITALS: BP 104/45
[2022-08-25] MEDS: ALPRAZOLAM 0.25 MG TABLET PO PRN (11:39)
[2022-08-25 15:36] VITALS: BP 118/51
== END 2022-08-25 16:30 | DRG 377 ==
LOC: EDH 12:00 → OBSVTOIN 15:36 → EDHIP 15:36 → 2AH 22:16 → 2DH 08-20 22:39
PROVIDERS: ADMIT Internal Medicine Critical Care Medicine; ATTEND Internal Medicine Critical Care Medicine
PROC: 30233N1 Transfusion of Nonautologous Red Blood Cells into Peripheral Vein, Percutaneous Approach (ICD-10-PCS; principal; 2022-08-19)
PROC: 0DJ08ZZ Inspection of Upper Intestinal Tract, Via Natural or Artificial Opening Endoscopic (ICD-10-PCS; 2022-08-21)
DX: K92.2 Gastrointestinal hemorrhage, unspecified (principal); I50.33 Acute on chronic diastolic (congestive) heart failure; J96.01 Acute respiratory failure with hypoxia; D62 Acute posthemorrhagic anemia; N17.9 Acute kidney failure, unspecified; N18.4 Chronic kidney disease, stage 4 (severe); I13.0 Hypertensive heart and chronic kidney disease with heart failure and stage 1 through stage 4 chronic kidney disease, or unspecified chronic kidney disease; D84.9 Immunodeficiency, unspecified; C92.10 Chronic myeloid leukemia, BCR/ABL-positive, not having achieved remission; K92.1 Melena; Z20.822 Contact with and (suspected) exposure to COVID-19; K21.9 Gastro-esophageal reflux disease without esophagitis; D69.6 Thrombocytopenia, unspecified; J44.9 Chronic obstructive pulmonary disease, unspecified; I27.20 Pulmonary hypertension, unspecified; I35.0 Nonrheumatic aortic (valve) stenosis; E11.22 Type 2 diabetes mellitus with diabetic chronic kidney disease; E66.01 Morbid (severe) obesity due to excess calories; F41.9 Anxiety disorder, unspecified; K74.60 Unspecified cirrhosis of liver; R62.7 Adult failure to thrive; Z66 Do not resuscitate; Z79.899 Other long term (current) drug therapy; Z90.710 Acquired absence of both cervix and uterus; Z95.0 Presence of cardiac pacemaker; Z95.2 Presence of prosthetic heart valve; Z99.81 Dependence on supplemental oxygen; Z68.26 Body mass index [BMI] 26.0-26.9, adult
CPT/HCPCS: 36415; 44360; 71045; 80048; 80053; 82270; 82948; 83540; 83550; 83735; 83880; 84100; 84145; 84484; 85014; 85018; 85025; 85027; 85060; 85610; 85730; 86850; 86900; 86901; 86923; 87635; 87804; 93005; 94640; 94664; 97039; C9113; C9803; G0378; J1642; J1940; J2001; J2704; J7030; P9016